=== PATIENT | male | born 1975 | race Caucasian/White ===

== ENCOUNTER 2021-07-22 10:07 | Emergency (ER) | payer OTHER ==
[~2021-07-22] VITALS: Ht 175.3 cm; Wt 146.4 kg
[2021-07-22] MEDS ORDERED: AmLODIPine BESYLATE 10 MG TABLET PO ONE (10:45)
[2021-07-22 10:58] LABS: BASOPHILS % (AUTO) 0.4 % (0.0-2.0); EOSINOPHILS % (AUTO) 0.4 % (1.0-6.0); HEMATOCRIT 53.7 % (41-53); HEMOGLOBIN 18.3 g/dL (13.5-17.5); LYMPHOCYTES # (AUTO) 1.8 K/uL (1.0-4.8); MEAN CORPUSCULAR HEMOGLOBIN 28.5 pg (26.0-34.0); MEAN CORPUSCULAR HGB CONC 34.1 G/dL (31.0-37.0); MEAN CORPUSCULAR VOLUME 84 fL (80-100); MONOCYTES # (AUTO) 0.8 K/uL (0.1-1.0); MONOCYTES % (AUTO) 6.4 % (2.0-9.0); NEUTROPHILS # (AUTO) 9.9 K/uL (1.8-7.7); NEUTROPHILS % (AUTO) 78.8 % (40.0-70.0); PLATELET COUNT (AUTO) 289 K/uL (150-450); RED BLOOD CELL COUNT(AUTO) 6.42 MIL/uL (4.50-5.90); RED CELL DISTRIBUTION WIDTH 13.8 % (11.5-14.5)
[2021-07-22 11:07] LABS: ANION GAP 9 mmol/L (8-16); CALCIUM, TOTAL 9.8 mg/dL (8.8-10.5); CARBON DIOXIDE 28 mmol/L (22-29); CHLORIDE 98 mmol/L (98-107); CREATININE 1.29 mg/dL (0.60-1.30); GLOMERULAR FILTR. RATE CALC > 60 mL/min (>60); GLUCOSE,RANDOM 140 mg/dL (70-110); SODIUM SERUM 135 mmol/L (136-145); UREA NITROGEN, BLOOD 21 mg/dL (7-18)
[2021-07-22 11:21] VITALS: BP 154/108
== END 2021-07-22 11:30 | disposition home or self-care (01) ==
LOC: EMS 10:12
DX: I10 Essential (primary) hypertension (principal)
CPT/HCPCS: 71045; 80048; 85025; 93005; 99285; 36415-L1; 36415-TC

== ENCOUNTER 2021-07-25 15:07 | Emergency (ER) | payer OTHER ==
[~2021-07-25] VITALS: Ht 175.3 cm; Wt 145.4 kg
[2021-07-25 16:02] VITALS: BP 165/117
[2021-07-25] MEDS ORDERED: LISINOPRIL 10 MG TABLET PO ONE (17:00)
== END 2021-07-25 17:42 | disposition home or self-care (01) ==
LOC: EMS 15:11
DX: I10 Essential (primary) hypertension (principal)
CPT/HCPCS: 99283